=== PATIENT | male | born 1950 | race Caucasian/White ===

== ENCOUNTER 2020-05-30 08:11 | Outpatient (REF) | payer MEDICARE, SELFPAY | END 2020-05-30 08:12 | disposition home or self-care (01) | LOC: HO.LAB 08:11 | PROVIDERS: Visit Provider Internal Medicine | DX: Z20.828 Contact with and (suspected) exposure to other viral communicable diseases (principal) | CPT/HCPCS: C9803; U0003 ==

== ENCOUNTER 2020-06-06 08:20 | Outpatient (REF) | payer OTHER, SELFPAY | END 2020-06-06 08:21 | disposition home or self-care (01) | LOC: HO.LAB 08:20 | PROVIDERS: Visit Provider Internal Medicine | DX: Z20.828 Contact with and (suspected) exposure to other viral communicable diseases (principal) | CPT/HCPCS: C9803; U0003 ==

== ENCOUNTER 2021-01-15 11:56 | Outpatient (REF) | payer MEDICARE, SELFPAY | END 2021-01-15 11:57 | disposition home or self-care (01) | LOC: HO.LAB 11:56 | PROVIDERS: Visit Provider Internal Medicine | DX: Z20.822 Contact with and (suspected) exposure to COVID-19 (principal) | CPT/HCPCS: C9803; U0003; U0005 ==

== ENCOUNTER 2021-05-05 09:24 | Outpatient (REF) | payer MEDICARE, SELFPAY ==
[2021-05-05 10:12] LABS: COVID-19 Test Negative (Negative)
== END 2021-05-05 09:25 | disposition home or self-care (01) ==
LOC: HO.LAB 09:24
PROVIDERS: PCP Internal Medicine; Visit Provider Internal Medicine
DX: Z20.822 Contact with and (suspected) exposure to COVID-19 (principal)
CPT/HCPCS: 36415; 87635; C9803